=== PATIENT | male | born 1990 | race African-American/Black ===

== ENCOUNTER 2024-06-27 10:12 | Emergency (ER) | payer OTHER ==
[~2024-06-27 10:12] MED LIST: Iopamidol 370 76% 100 ML VIAL ONE
[2024-06-27] MEDS ORDERED: Sodium Chloride 0.9% 1,000 ML ONE (10:51)
[2024-06-27] MEDS ORDERED: Ketorolac Tromethamine 30 MG (1 mL) VIAL ONE (10:51)
[2024-06-27 11:24] LABS: #Basophils 0.2 thou/uL (0.0-0.2); #Eosinophils 0.2 thou/uL (0.0-0.7); #Lymphocytes 2.7 thou/uL (1.20-3.40); #Monocytes 0.8 thou/uL (0.11-0.59); #Neutrophils 2.4 thou/uL (1.40-6.50); %Basophils 2.8 % (0.0-1.0); %Eosinophils 3.4 % (0.0-10.0); %Lymphocytes 42.7 % (21.0-51.0); %Monocytes 12.1 % (0.0-10.0); %Neutrophils 39.1 % (42.0-75.0); Hematocrit 42.5 % (42.0-52.0); Hemoglobin 12.9 g/dL (14.0-18.0); Mean Corpuscular HGB CONC 30.3 g/dL (32.0-36.0); Mean Corpuscular Hemoglobin 25.5 pg (27.0-31.0); Mean Corpuscular Volume 84.3 fl (78.0-98.0); Mean Platelet Volume 6.3 fL (7.4-10.4); Platelet Count 289 10x3/uL (130-400); RBC Distribution Width 15.9 % (11.5-14.5); Red Blood Cell (RBC) Count 5.05 mill/uL (4.70-6.10); White Blood Cell (WBC) Count 6.3 10x3/uL (4.8-10.8)
[2024-06-27 11:55] LABS: Calc. Creatinine Clearance 0 mL/min (70-130)
[2024-06-27] MEDS ORDERED: Potassium Chloride 20 MEQ (100 mL) BAG ONE (12:12)
[2024-06-27] MEDS ORDERED: Potassium Chloride 20 MEQ TAB ONE (12:13)
[2024-06-27 12:17] LABS: Amphetamine Negative (Negative); Barbiturates Screen Negative (Negative); Benzodiazepine Screen Negative (Negative); Bilirubin Negative (Negative); Blood, Urine Negative (Negative); Clarity Clear (Clear); Cocaine Metabolite Screen Negative (Negative); Glucose, Urine (Dipstick) Negative (Negative); Ketone, Urine Negative (Negative); Leukocyte Negative (Negative); Methadone Negative (Negative); Methamphetamine Negative (Negative); Nitrite Negative (Negative); Opiate Screen Negative (Negative); Oxycodone Screen Negative (Negative); Phencyclidine (PCP) Negative (Negative); Protein, Urine (Dipstick) Negative (Neg-Trace); Sperm/HPF 1+ HPF (None Seen); THC/Cannabinoid Screen Negative (Negative); Tricyclic Screen Negative (Negative); Urobilinogen 0.2 mg/dL (Less than 2)
[2024-06-27 12:29] LABS: Base Excess-Venous 1.8 mmol/L (-2.0 to 3.0); Bicarbonate (HCO3v) 25.7 mmol/L (22.0-28.0); CO2 Tension (PvCO2) 37.1 mmHg (42.0-51.0); Calcium, Ionized 1.15 mmol/L (1.15-1.33); Chloride 107 mmol/L (98-107); Hemoglobin - Calc 13.4 g/dL (14.0-18.0); Potassium 3.9 mmol/L (3.5-5.1); Sodium 143 mmol/L (138-145); T. Carbon Dioxide 26.8 mmol/L (22.0-28.0); vO2 Saturation-calc 93.7 % (60.0-85.0)
[2024-06-27 13:09] LABS: Potassium 3.9 mmol/L (3.5-5.1); Sodium 135 mmol/L (136-145)
[2024-06-27 13:10] LABS: Carbon Dioxide 20 mmol/L (22-29); Chloride 107 mmol/L (98-107)
[2024-06-27 13:11] LABS: Anion Gap 12 mmol/L (10-20)
[2024-06-27 13:12] LABS: BUN (Urea Nitrogen) 11 mg/dL (8.9-20.6)
[2024-06-27 13:13] LABS: Calcium 8.8 mg/dL (7.6-10.4); Estimated GFR 89; Glucose 87 mg/dL (70-105)
[2024-06-27 13:14] LABS: Albumin 3.7 g/dL (3.1-4.5); Bilirubin, Total 0.5 mg/dL (0.3-1.2); Globulin 3.4 g/dL (2.4-3.5); Protein, Total 7.1 g/dL (6.0-8.3)
[2024-06-27 13:15] LABS: Alkaline Phosphatase 81 U/L (40-110)
[2024-06-27 13:16] LABS: ALT (SGPT) 37 U/L (Less than 45); AST (SGOT) 34 U/L (11-34); Lipase 21 U/L (8-78)
[2024-06-27] MEDS ORDERED: Lisinopril 10 MG TAB ONE (13:48)
== END 2024-06-27 14:10 ==
LOC: NAV ERS 10:12
DX: R23.8 Other skin changes (principal); R10.11 Right upper quadrant pain; R10.31 Right lower quadrant pain; I10 Essential (primary) hypertension; E11.9 Type 2 diabetes mellitus without complications; E78.5 Hyperlipidemia, unspecified
CPT/HCPCS: 36416; 74177; 80053; 80306; 81001; 82010; 82330; 82803; 83605; 83690; 85025; 93005; 96374; 36415-59; J1885; J3480; J7030; J7042; Q9967